=== PATIENT | female | born 1960 | race African-American/Black ===

== ENCOUNTER → 2021-11-08 | Outpatient (CLI) | payer BC ==
--- NOTE | 2021-11-09 08:15 | RAD ---
3 views bilateral feet HISTORY: Pain AP lateral oblique views There is mild degenerative changes of the first metatarsophalangeal joint on the left with marginal s purring. Remaining visualized osseous structures are grossly intact. IMPRESSION: No acute findings. Electronically signed by: Chaitanya Finnegan III, MD (11/09/2021 8:12 AM) [facility]
== END ==
LOC: RAD 11:26
PROVIDERS: ATTEND Family Medicine
DX: M19.072 Primary osteoarthritis, left ankle and foot (principal); M77.52 Other enthesopathy of left foot and ankle; M79.671 Pain in right foot
CPT/HCPCS: 73630-50